=== PATIENT | female | born 1945 | race Caucasian/White ===

== ENCOUNTER 2017-01-22 21:03 | Observation (INO) | payer MEDICARE, OTHER ==
--- NOTE | ~2017-01-22 | DS ---
Discharge Summary [facility] [address] [facility] [place]. [address] NAME: LYNNETTE DELGADO : 47 STATUS : DIS Damion PAT#: [id number] AGE: 71 ADM/REG DATE : 01/22/17 MR#: [id number] REPORT SERV DATE: 01/25/17 DICTATED BY: STEPHIE ABDI DATE: 01/24/17 REPORT STATUS : Draft TRANSCRIBED BY: MEAGHAN DATE: 01/24/17 ADMISSION DATE: 01/22/2017 DISCHARGE DATE: 01/24/2017 CONSULTATION: Neurology, Dr. Vergara. PROCEDURES: None. DISCHARGE DIAGNOSES: 1. Transient ischemic attack. 2. Migraine headaches. 3. Hypertension. 4. Dyslipidemia. 5. Diabetes mellitus type 2. 6. History of oral labial herpes. DISCHARGE CONDITION: Stable. HISTORY OF PRESENT ILLNESS: For detailed HPI, please make reference to Dr. Taina Wellington's dictation on 01/22/2017. In summary, this is a 71-year-old female with medical history significant for diabetes mellitus type 2, hypertension, migraine headaches, who was transferred from [facility] to [facility] for possible stroke versus transient ischemic attack. It was noted that the patient had numbness on the left side, particularly in the fingers and around the face with associated slurred speech which started approximately 24 hours prior to her presentation to [facility]. The patient reported on arrival at [facility], she was given baby aspirin. A CT scan of the head was done that was negative for acute intracranial hemorrhage or infarction. At the time at [facility], all neurological symptoms had resolved. The patient was subsequently transferred to [facility] because [facility] has no neurologist on service. The patient was accepted under the hospitalist's care. HOSPITAL COURSE: 1. TIA. The patient had an MRI/MRA of the head and neck, which was essentially negative for an acute infarction or a hemorrhage. Neurology was consulted. Neurology also recommended echocardiogram in addition to the MRA. Echocardiogram showed a normal left ventricular size with preserved ejection fraction of 55% to 60%. No intracardiac thrombus on echo. The patient was evaluated by Physical Therapy; recommended the patient to be discharged home as the patient has no neurological deficit. The patient was advised to continue aspirin, Plavix, beta anastacio, and antihypertensive, and follow up with Neurology as an outpatient. 2. Hypertension. The patient's blood pressure was elevated. On presentation, blood pressure was in the range of 200. Permissive hypertension was allowed for the first 24 hours. The patient's blood pressure was gradually lowered with oral antihypertensives. Norvasc was added to the patient's medications at the time of discharge. The patient was advised to continue followup with primary care physician. 3. Migraine headaches. Per Neurology, the patient was evaluated and was concerned for Discharge Summary [address] [address] NAME: LYNNETTE DELGADO : 47 STATUS : DIS Damion PAT#: [id number] AGE: 71 ADM/REG DATE : 01/22/17 MR#: [id number] REPORT SERV DATE: 01/25/17 DICTATED BY: STEPHIE ABDI DATE: 01/24/17 REPORT STATUS : Draft TRANSCRIBED BY: MEAGHAN DATE: 01/24/17 possible hemiplegic migraine given the patient's symptoms. The patient had repeat Depakote and Toradol during the course of admission to break the migraine. At the time of discharge, the patient's headache has resolved. The patient was advised to continue Topamax and follow up with Neurology as outpatient. 4. Diabetes mellitus. The patient's blood sugar was controlled with insulin therapy in the hospital. The patient was concerned that Lantus insulin was too expensive for her. The patient was discharged home with Levemir and metformin. The patient was advised to continue followup with primary care physician. 5. Dyslipidemia. Given the risk for cerebrovascular disease in this patient, the patient was advised to continue Lipitor 80 mg daily at bedtime. In addition, given the fact that the patient was taking Premarin and Celebrex on admission prior to presentation to the hospital, the patient is consequently at risk for a CVA. These medications were discontinued prior to discharge. 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 IMAGING: Carotid Doppler; impression: Category normal. Echocardiogram; summary: Normal LV size with preserved EF 55% to 60%. Mild diastolic dysfunction. Normal LV size and systolic function. Trace mitral and tricuspid regurgitation. Mild aortic regurgitation. MRI head: Decreased intensity of the signal at the middle cerebral artery region involving the distal M1 and proximal M2 segments of both middle cerebral arteries in a symmetrical manner consistent with motion-related artifact when images reviewed. Otherwise unremarkable intracranial MRI. MRA neck; impression: Unremarkable MRA of the carotid arteries. No significant atherosclerosis or vascular stenosis. Normal caliber and antegrade flow bilateral arteries. MRI brain; impression: No acute CVA or other acute intracranial pathology. Mild diffuse cerebral involutional changes with multiple white matter chronic microvascular ischemic changes. Although this pattern does not exclude the possibility of demyelinating disease, the morphology of the deep white matter signal abnormalities is not typical for demyelinating disease. DISCHARGE MEDICATIONS: 1. Norvasc 10 mg p.o. daily. 2. Aspirin 81 mg p.o. daily. 3. Lipitor 80 mg p.o. daily. 4. Topamax 100 mg p.o. daily. 5. Plavix 75 mg p.o. daily. 6. Levemir 10 units at bedtime . 7. Add aspirin 81 mg p.o. daily. 8. Add Benicar 20 mg p.o. daily. 9. Nexium 20 mg p.o. daily. 10.Metformin 1000 mg p.o. b.i.d. Discharge Summary [address] [address] NAME: LYNNETTE DELGADO : 47 STATUS : DIS Damion PAT#: [id number] AGE: 71 ADM/REG DATE : 01/22/17 MR#: [id number] REPORT SERV DATE: 01/25/17 DICTATED BY: STEPHIE ABDI DATE: 01/24/17 REPORT STATUS : Draft TRANSCRIBED BY: MEAGHAN DATE: 01/24/17 DISCHARGE DISPOSITION: Discharged home. DISCHARGE ACTIVITIES: As tolerated. DISCHARGE FOLLOWUP: 1. Follow up with Neurology in 4 weeks. 2. Follow up with primary care physician within one to two weeks of discharge. Greater than 30 minutes was used to prepare this patient's discharge, reconcile medications, and advise the patient on discharge plans and followup. SHOSHANAO/MEAGHAN Stephie Abdi MD / [id number] CC: MD Herb Addison MD
--- NOTE | ~2017-01-22 | CN ---
Consultation Report [facility] [address] [place]. [address] NAME: LYNNETTE DELGADO : 47 STATUS : DIS Damion PAT#: [id number] AGE: 71 ADM/REG DATE : 01/22/17 MR#: [id number] REPORT SERV DATE: 01/25/17 DICTATED BY: DATE: REPORT STATUS : Draft TRANSCRIBED BY: MODL DATE: 01/23/17 NEUROLOGY CONSULTATION DATE OF CONSULTATION: 01/22/2017 REASON FOR CONSULT: Right-sided numbness. HISTORY OF PRESENT ILLNESS: This is an 71-year-old female, who presented to [facility] from [facility] secondary to concern of possible TIA versus stroke with the patient reports on 01/22/2016 at roughly noon, the patient was noted to have tingling initially in the left hand and then the forearm, arm, as well as involvement of side of the face, as well as tongue. The patient reported some dysarthria secondary to numbness of the tongue but otherwise she denies any other significant language problems. Denies any arm or leg weakness and denies any ambulatory difficulties. The patient denies any acute changes in vision issues and denies any acute blindness or abnormal vision associated with the patient's symptom. The patient's does reports left-sided facial droop at an ER presentation. The patient also complains of a headache with the ER presentation mostly on the left side, a little bit on the right vertex area. The patient does have a history of migraine reported to primary care physician but did not migraine headache to the neurologist physician. The patient reports currently having no symptoms except for the headache. The patient denies recent illness, fever, chills, nausea, vomiting, chest pain, or shortness of breath. PAST MEDICAL HISTORY: Significant for diabetes, hypertension, oral herpes, as well as migraine headaches. ALLERGIES: THE PATIENT REPORTS ALLERGY TO DEPO-MEDROL OF IN THE PAST. SOCIAL HISTORY: The patient denies tobacco, alcohol, or recreational drug usage. FAMILY HISTORY: Significant for stroke as well as cerebral hemorrhage, cancer, lymphoma. HOME MEDICATIONS: Consist of acyclovir, Celebrex, Premarin, Singulair, Nexium, Benicar with hydrochlorothiazide, Lipitor, metformin, VESIcare, aspirin, Linzess. REVIEW OF SYSTEMS: Negative except for those mentioned in the HPI. PHYSICAL EXAMINATION: VITAL SIGNS: The patient is noted to have vital signs with T-max of 97.8, heart rate of 50 to 83, respiration of 16 to 18, and blood pressure of 157 to 210 over 69 to 91. GENERAL: The patient is well developed, well nourished, in no acute distress. CARDIOVASCULAR: Regular rate and rhythm. No carotid bruits were otherwise auscultated. PULMONARY: Clear to auscultation bilaterally at time of evaluation. Consultation Report [facility] [address] [facility] [place]. [address] NAME: LYNNETTE DELGADO : 47 STATUS : DIS Damion PAT#: [id number] AGE: 71 ADM/REG DATE : 01/22/17 MR#: [id number] REPORT SERV DATE: 01/25/17 DICTATED BY: DATE: REPORT STATUS : Draft TRANSCRIBED BY: MODL DATE: 01/23/17 NEUROLOGIC: The patient is alert, oriented to person, place, year, and month and follows simple and 2-step commands. No dysarthria or aphasia was otherwise appreciated. Peripheral vision is noted to be intact with the patient noted to have symmetrical facial expression and sensation. Midline tongue. Normal palatal movement. Normal hearing. The patient demonstrated 5/5 bilateral upper and lower extremity strength at the time of evaluation and reports symmetrical sensation. Deep tendon reflex is otherwise 2+ throughout. Downgoing toe on bilateral plantar reflexes. Oliwak-il-ewzu examination is normal. No ataxia is seen. The patient demonstrates stable gait and stable station. LABORATORY STUDIES: Demonstrated white blood cell count of 8.4, hemoglobin of 13.9, hematocrit of 41.3, and platelet count of 235. Chemistry panel: Sodium 140, potassium 3.2, chloride 100, bicarb 28, BUN of 22, creatinine of 0.78, glucose of 59, calcium of 10.4, magnesium of 1.5. Serum cholesterol demonstrated HDL of 91, LDL of 22, and triglyceride of 65. The patient does not currently have CT scan of the brain ordered. IMPRESSION: 1. Left-sided numbness with symptoms resolved after 15 minutes. NIH Stroke Scale was currently 0, concern for possible TIA versus stroke versus hypertensive emergencies versus possible complex migraine. We will increase atorvastatin to 80 mg p.o. at bedtime. We will also plan to add Plavix to patient's medication regimen. Meanwhile, we will provide the patient with Depakote and Toradol for headache control. MRI of the brain is otherwise pending. 2. Hypertension. We will defer to primary care physician for management. RECOMMENDATION: 1. Hypertensive management as per hospitalist and primary care. 2. Plavix 75 mg p.o. daily. 3. Atorvastatin 80 mg p.o. at bedtime. 4. Continue aspirin. 5. MRI of the brain without contrast. 6. Echo and carotid Doppler study. 7. Hemoglobin A1c which is pending. 8. We will start the patient on Depakote 125 mg IV b.i.d. and Toradol 30 mg IV .. [facility]/MODL Seb Vergara MD / [id number] Consultation Report [address] [address] NAME: LYNNETTE DELGADO : 47 STATUS : DIS Damion PAT#: [id number] AGE: 71 ADM/REG DATE : 01/22/17 MR#: [id number] REPORT SERV DATE: 01/25/17 DICTATED BY: DATE: REPORT STATUS : Draft TRANSCRIBED BY: MODL DATE: 01/23/17 CC: MD Herb Addison MD
--- NOTE | ~2017-01-22 | HP ---
History And Physical [facility] [address] [facility] [place]. [address] NAME: LYNNETTE DELGADO : 47 STATUS : DIS Damion PAT#: [id number] AGE: 71 ADM/REG DATE : 01/22/17 MR#: [id number] REPORT SERV DATE: 01/23/17 DICTATED BY: AMAYA HARDY DATE: 01/22/17 REPORT STATUS : Draft TRANSCRIBED BY: MODL DATE: 01/22/17 DATE OF ADMISSION: 01/22/2017 HISTORY OF PRESENT ILLNESS: This is a 71-year-old female, who was basically transferred from [facility] to [facility] because of further evaluation for possible stroke versus transient ischemic attack. The patient reported that yesterday around 12:00 p.m., she had initially numbness on her left hand specifically on her fingers and started with a small finger one at a time, so each finger was becoming numb, so four fingers became numb and then sensation of tingling in the left hand as well as she developed numbness on the left cheek and slurred speech. According to patient's , she had a left-sided facial droop. It was accompanied with headache on the left side of her head. She said that she has migraine headaches and the headache reminded her migraine headache that she had before, but she never had similar episodes of tingling, slurred speech, and facial droop. This was first time in her life and she did not have any blurry vision. She said that episode lasted 15 minutes. She took baby aspirin and went to [facility] She denies any chest pain, no shortness of breath. No abdominal pain. No fever. No rash. No headache now. All 14- point review of system done and negative except what is stated in the history of present illness. PAST MEDICAL HISTORY: Known for diabetes, hypertension, history of oral labial herpes since childhood, history of migraine headaches. PAST SURGICAL HISTORY: Includes cervical spine fusion with three discs removed and metallic plates placed with chronic neck pain and right shoulder problem. Also, she had total hysterectomy and bilateral salpingo-oophorectomy. She has prolapse on her internal organs. ALLERGIES: NO KNOWN DRUG ALLERGIES. SOCIAL HISTORY: Nonsmoker, nondrinker, no recreational drug use. , she has two grownup daughters. FAMILY HISTORY: Mother had a stroke in her 70s and then she of cerebral hemorrhage at 76 years old. Father had a cancer lymphoma. Her primary care physician is Dr. Coffey. HOME MEDICATIONS: Valacyclovir 500 mg a day, Celebrex 200 mg daily, Premarin 0.3 mg a day, Singulair 10 mg a day, Nexium 40 mg a day, Benicar with HCTZ 20/12.5 daily, Lipitor 20 mg daily, metformin extended release 500 mg b.i.d., VESIcare 5 mg half pill in the morning and half in the evening, aspirin 81 mg per day, Lantus eight units at bedtime. Depo-Medrol, she had reaction to Depo-Medrol but she does not have any other medications related allergy. PHYSICAL EXAMINATION: GENERAL: A well-nourished well-developed female not in acute distress. Resting quietly. VITAL SIGNS: Blood pressure initially on presentation was 200/87 and now 178/85, heart rate 55, respiratory rate 16, and oxygen saturation 97% on room air. Temperature 97.8. HEENT: Head atraumatic, normocephalic. Conjunctivae clear. Pupils are equal and reactive to light and accommodation. Extraocular muscles are intact. History And Physical [address] [address] NAME: LYNNETTE DELGADO : 47 STATUS : DIS Damion PAT#: [id number] AGE: 71 ADM/REG DATE : 01/22/17 MR#: [id number] REPORT SERV DATE: 01/23/17 DICTATED BY: AMAYA HARDY DATE: 01/22/17 REPORT STATUS : Draft TRANSCRIBED BY: MEAGHAN DATE: 01/22/17 NECK: Supple. Trachea is midline. No supraclavicular or cervical lymphadenopathy. LUNGS: Clear to auscultation bilaterally. Normal respiratory effort. CARDIOVASCULAR: Regular rate and rhythm. Point of maximal impulse not displaced. ABDOMEN: Soft, nontender, nondistended. Positive normoactive bowel sounds. EXTREMITIES: No clubbing, cyanosis, nor edema. SKIN: Normal color and turgor. NEUROLOGIC: Cranial nerves 3-12 are intact. Muscle strength 5/5 bilaterally on upper and lower extremities. Deep tendon reflexes 2/4 bilaterally on upper and lower extremities. Sensations intact bilaterally on upper and lower extremities and on the face. LABORATORY RESULTS: Lab results which were done at [facility] today showed white count of 6.5, hemoglobin 12.1, hematocrit 37.6, and a platelet count 175,000. Her PT was 10.8, INR was 1.02. Sodium 138, potassium 3.7, chloride 100, carbon dioxide 29, BUN 22, creatinine 0.75, blood sugar was 156. ALT 11, AST 14. Troponin was less than 0.03. Noncontrast CT of the brain which was done at [facility] today showed mild atrophy with small vessel ischemia. There is asymmetry of atrophy in the parietal lobe; however, there is no hypodensity to suggest acute infarction. There is no intracranial hemorrhage. No mass effect and no edema. The ventricles are normal in size and there is no extra-axial fluid collection. Chest x-ray done today showed normal heart size with mildly tortuous aorta. No infiltrate and no effusion. Again noted, on the right seventh posterior rib fracture status post new anterior cervical fusion. ASSESSMENT AND PLAN: 1. This is a very pleasant 71-year-old female with a past medical history of diabetes, hypertension, hyperlipidemia, presented status post numbness in her left hand as well as slurred speech and left-sided facial droop which lasted approximately 15 minutes around noon today. Currently, symptoms completely resolved and this could be a TIA or small cerebrovascular accident. I am going to order an MRI and MRA of the head and neck, bilateral carotid ultrasound, and echocardiogram. We will check her fasting lipid profile and hemoglobin A1c. 2. My partner, Dr. Day will see this patient tomorrow. She will need also a Neurology evaluation. We will put her on 325 mg of aspirin. 3. Hypertension, blood pressure earlier was in 200s, now 178/85, we will give liberal blood pressure control, because of possible stroke. We will treat it if it will be above 180. We will continue her home blood pressure medications and anticholesterol medications. We will continue her diabetes medications as well. 4. She is on Premarin hormone which increases risk of stroke. I told the patient to stop it and the patient is going to stop her Premarin as well as she is going to discontinue her Celebrex and she was recommended not to use nonsteroid anti-inflammatories because she is already going to be on aspirin 325 mg recommended. I will also order on her EKG, and there was also noted accidental seventh rib fracture on the chest x-ray; with repeat chest x-ray, Dr. Day will check on this tomorrow morning. [facility]/MODL History And Physical [address] [address] NAME: LYNNETTE DELGADO RENY : 47 STATUS : DIS Damion PAT#: [id number] AGE: 71 ADM/REG DATE : 01/22/17 MR#: [id number] REPORT SERV DATE: 01/23/17 DICTATED BY: AMAYA HARDY DATE: 01/22/17 REPORT STATUS : Draft TRANSCRIBED BY: MEAGHAN DATE: 01/22/17 aya Hardy M.D. / [id number] CC: Stephie Day MD
[~2017-01-22 21:03] MED LIST: ASAB PO; BENICAR HCT1 TAB PO; C5; CELEBREX2 PO; GLUCOPHAGE1000 MG PO; LANTUSCART SC; LIPITOR20 PO; MELATONIN5 M1 PO; MULTIVITAMI1 PO; NEXIUM40 PO; NORCO1 TA2 PO; OSTEO BI-FLEX1 EACH PO; PREM.3B PO; PROBIOTIC; SINGULAIR1 PO; VALTREX5 PO; VESICARE5 PO
[2017-01-23 07:12] LABS: BASOPHILS 0.4 %; BASOPHILS ABSOLUTE 0.03 10/3/uL (0.0-0.16); EOSINOPHILS 4.6 %; EOSINOPHILS ABSOLUTE 0.39 10/3/uL (0.0-0.53); HEMATOCRIT 41.3 % (36.0-48.0); HEMOGLOBIN 13.9 g/dL (12.0-16.0); IMMATURE GRANULOCYTES 0.2 %; IMMATURE GRANULOCYTES ABSOLUTE 0.02 10/3/uL (0.0-0.11); LYMPHOCYTES ABSOLUTE 3.37 10/3/uL (0.67-4.30); MEAN CORPUS HGB CONC 33.7 g/dL (32.0-36.0); MEAN CORPUSCULAR HEMOGLOB 30.4 pg (26.0-34.0); MEAN CORPUSCULAR VOLUME 90.4 fL (80-100); MEAN PLATELET VOLUME 10.8 fL (9.2-13.0); MONOCYTES 7.8 %; MONOCYTES ABSOLUTE 0.66 10/3/uL (0.21-1.20); NEUTROPHILS ABSOLUTE 3.95 10/3/uL (2.02-8.40); PLATELET COUNT 235 10/3/uL (150-400); RBC DISTRIBUTION WIDTH 13.9 % (12.0-16.0); RED CELL COUNT 4.57 10/6/uL (4.0-5.6); WHITE BLOOD CELLS 8.4 10/3/uL (4.5-10.5)
[2017-01-23 07:17] LABS: MANUAL DIFF NO %
[2017-01-23 07:27] LABS: BUN (BLOOD UREA NITROGEN) 22 MG/DL (6-23); CALCIUM, SERUM 10.4 MG/DL (8.5-10.4); CHLORIDE, SERUM 100 MMOL/L (96-112); CHOLESTEROL 126 MG/DL (< 200); CO2 (CARBON DIOXIDE) 28 MMOL/L (24-34); CREATININE 0.78 MG/DL (0.55-1.02); GFR AFRICAN AMERICAN 89 ML/MIN (>=60); GFR NON AFRICAN AMERICAN 77 ML/MIN (>=60); GLUCOSE, SERUM 59 MG/DL (60-99); POTASSIUM, SERUM 3.2 MMOL/L (3.5-5.3); SODIUM, SERUM 140 MMOL/L (135-148); TRIGLYCERIDE 65 MG/DL (< 150)
[2017-01-23 07:35] LABS: CHOL/HDL RATIO(NOT ORDER) 1.4 (0-5); HDL CHOLESTEROL 91 MG/DL (> 49); LDL CHOLESTEROL 22 MG/DL (< 130); NON-HDL CHOLESTEROL 35 MG/DL (< 160)
[2017-01-23] MEDS ORDERED: VALTREX5 PO (15:09)
[2017-01-23] MEDS ORDERED: PREM.3B PO (15:09)
[2017-01-23] MEDS ORDERED: SINGULAIR1 PO (15:09)
[2017-01-23] MEDS ORDERED: NEXIUM40 PO (15:09)
[2017-01-23] MEDS ORDERED: CELEBREX2 PO (15:09)
[2017-01-23] MEDS ORDERED: BENICAR PO (15:10)
[2017-01-23] MEDS ORDERED: FORTAMET1000 MG PO (15:10)
[2017-01-23] MEDS ORDERED: VESICARE5 PO (15:10)
[2017-01-23] MEDS ORDERED: LIPITOR20 PO (15:10)
[2017-01-23] MEDS ORDERED: LANTUS SC (15:11)
[2017-01-23] MEDS ORDERED: ASAB PO (15:11)
[2017-01-23] MEDS ORDERED: VICKS SINEX NAS (15:11)
[2017-01-23] MEDS ORDERED: CENTRUM PO (15:11)
[2017-01-23] MEDS ORDERED: ZOVIRAX 5% TOP (15:12)
[2017-01-23] MEDS ORDERED: MELATONIN10 M2 PO (15:12)
[2017-01-23] MEDS ORDERED: BACTROINT TOP (15:13)
[2017-01-23] MEDS ORDERED: METRONIDAZOLE 0.75% TOP (15:14)
[2017-01-24 01:10] LABS: BASOPHILS 0.5 %; BASOPHILS ABSOLUTE 0.03 10/3/uL (0.0-0.16); EOSINOPHILS 5.1 %; HEMOGLOBIN 12.4 g/dL (12.0-16.0); IMMATURE GRANULOCYTES 0.2 %; IMMATURE GRANULOCYTES ABSOLUTE 0.01 10/3/uL (0.0-0.11); LYMPHOCYTES 34.4 %; LYMPHOCYTES ABSOLUTE 2.04 10/3/uL (0.67-4.30); MEAN CORPUS HGB CONC 34.1 g/dL (32.0-36.0); MEAN CORPUSCULAR HEMOGLOB 30.7 pg (26.0-34.0); MEAN CORPUSCULAR VOLUME 90.1 fL (80-100); MEAN PLATELET VOLUME 10.6 fL (9.2-13.0); MONOCYTES 8.9 %; MONOCYTES ABSOLUTE 0.53 10/3/uL (0.21-1.20); NEUTROPHILS 50.9 %; NEUTROPHILS ABSOLUTE 3.02 10/3/uL (2.02-8.40); PLATELET COUNT 193 10/3/uL (150-400); RED CELL COUNT 4.04 10/6/uL (4.0-5.6); WHITE BLOOD CELLS 5.9 10/3/uL (4.5-10.5)
[2017-01-24 01:13] LABS: HEMATOCRIT 36.4 % (36.0-48.0); MANUAL DIFF NO %
[2017-01-24 01:18] LABS: BUN (BLOOD UREA NITROGEN) 22 MG/DL (6-23); CALCIUM, SERUM 9.9 MG/DL (8.5-10.4); CHLORIDE, SERUM 102 MMOL/L (96-112); CO2 (CARBON DIOXIDE) 29 MMOL/L (24-34); CREATININE 0.85 MG/DL (0.55-1.02); GFR AFRICAN AMERICAN 80 ML/MIN (>=60); GFR NON AFRICAN AMERICAN 69 ML/MIN (>=60); GLUCOSE, SERUM 63 MG/DL (60-99); PHOSPHORUS, SERUM 3.3 MG/DL (2.5-4.5); SODIUM, SERUM 140 MMOL/L (135-148)
[2017-01-24] MEDS ORDERED: NORV10 PO (15:03)
[2017-01-24] MEDS ORDERED: PLAVIX PO (15:06)
[2017-01-24] MEDS ORDERED: TOPAMAX25 PO (15:07)
[2017-01-24] MEDS ORDERED: LEVEMFLXPN SC (15:12)
== END 2017-01-24 16:15 | disposition home or self-care (01) ==
LOC: 2SO 21:03
PROVIDERS: Hospitalist
DX: G45.9 Transient cerebral ischemic attack, unspecified (principal); G43.909 Migraine, unspecified, not intractable, without status migrainosus; M19.90 Unspecified osteoarthritis, unspecified site; K21.9 Gastro-esophageal reflux disease without esophagitis; E78.5 Hyperlipidemia, unspecified; E11.9 Type 2 diabetes mellitus without complications; I10 Essential (primary) hypertension; Z79.82 Long term (current) use of aspirin; Z79.899 Other long term (current) drug therapy; Z90.710 Acquired absence of both cervix and uterus; Z90.722 Acquired absence of ovaries, bilateral; Z82.3 Family history of stroke; Z96.641 Presence of right artificial hip joint
CPT/HCPCS: 70544; 70547; 70551; 71010; 80048; 80061; 82962; 83036; 83735; 84100; 84443; 85025; 93005; 93306; 93880; 96374; 96375; 96376; 97161-GP; A9270-GY; G0378; G8978-CH-GP; G8979-CH-GP; G8980-CH-GP; J0360